=== PATIENT | female | born 1980 | race Caucasian/White ===

== ENCOUNTER → 2017-05-02 | Outpatient (CLI) | payer BC ==
[~2017-05-02] MED LIST: ACET-77 PO; AMLO10TA2 PO; DICL50TA4 PO; DOCU100C37 PO; HYDR-3812 PO; HYDR-3816 PO; HYDR-700 PO; IBUP-1773 PO; TRIA1TAB5
--- NOTE | 2017-05-02 15:22 | Diagnostic Imaging Report ---
Three views of the left knee. INDICATION: Fall. FINDINGS: There is no fracture, dislocation, or radiopaque foreign body. The articular surface appears intact. No suprapatellar effusion seen. IMPRESSION: Unremarkable exam. Dictated by: Dictated on workstation # [id number]
== END ==
LOC: RAD 11:11
PROVIDERS: ATTEND Internal Medicine
DX: S89.92XA Unspecified injury of left lower leg, initial encounter (principal); W19.XXXA Unspecified fall, initial encounter; Y99.8 Other external cause status
CPT/HCPCS: 73562

== ENCOUNTER → 2018-06-09 | Outpatient (CLI) | payer BC ==
[~2018-06-09] MED LIST changes: +ACHD5005 PO; +HYDR-34 PO; -HYDR-3812 PO; -HYDR-3816 PO
--- NOTE | 2018-06-09 17:02 | Diagnostic Imaging Report ---
INDICATION: Chronic left hip pain. AP and oblique views of the left hip are obtained. FINDINGS: No fracture or acute bony abnormality is seen. There is no overt lytic or blastic lesion. IMPRESSION: Negative left hip. Dictated by: Dictated on workstation # [id number]
== END ==
LOC: RAD 16:02
PROVIDERS: ATTEND Internal Medicine
DX: M25.552 Pain in left hip (principal)
CPT/HCPCS: 73502

== ENCOUNTER 2022-11-01 08:07 | Emergency (ER) | payer BC ==
[~2022-11-01] VITALS: Ht 175.3 cm; Wt 122.5 kg
[~2022-11-01 08:07] MED LIST changes: -ACET-77 PO; +ACET-78 PO; +AMLO-251 PO; -AMLO10TA2 PO
--- NOTE | 2022-11-01 08:17 | ED Dyspnea ---
General Stated Complaint: SOB History of Present Illness Date Seen by Provider: Nov 01, 2022 Time Seen by Provider: 08:17 Initial Comments 42-year-old female presents with generalized malaise, headache, chest tightness and shortness of breath. Patient reports they have had some respiratory illness for a while but this morning is a lot worse. She feels like she is having a difficulty taking a deep breath and that her chest feels tight. She denies any radiation or chest pain. She denies any chronic lung history or smoking. Allergies and Home Medications Allergies Coded Allergies: latex (Verified Allergy, Intermediate, RASH, 04/05/16) cefaclor (Verified Allergy, Unknown, 04/05/16) codeine (Verified Allergy, Unknown, PT STATES HAS HAD HYDROCODONE & HYDROMORPHONE W/O ISSUE, 04/05/16) Patient Home Medication List Home Medication List Reviewed: Yes Acetaminophen (Acetaminophen) 500 Mg Tablet, 1,000 MG PO Q6H PRN for MILD PAIN Prescribed by: JANET SCHMIDT on 04/17/16 1407 Ibuprofen (Ibuprofen) 600 Mg Tablet, 600 MG PO Q6H PRN for PAIN Prescribed by: JANET SCHMIDT on 04/17/16 1333 Review of Systems Review of Systems Constitutional: malaise EENTM: No ear pain, No throat pain Respiratory: cough, short of breath, other (Chest tightness) Cardiovascular: No chest pain, No palpitations, No syncope Gastrointestinal: No abdominal pain, No diarrhea, No vomiting Genitourinary: no symptoms reported Musculoskeletal: no symptoms reported Skin: no symptoms reported Psychiatric/Neurological: Headache Past Nfvlqtu-Qjgauu-Vwhpuk Hx Immunizations Up To Date Tetanus Booster (TDap): Unknown PED Vaccines UTD: No Past Medical History Appendectomy, Section, Gallbladder Reproductive Disorders: Yes (SEVERE TOXEMIA WITH ) Female Reproductive Disorders: Menstrual Problems, Endometriosis Sexually Transmitted Disease: No HIV/AIDS: No Loss of Vision: Bilateral Hearing Impairment: Denies Adverse Reaction/Blood Tranf: No (N/A) Family Medical History Patient reports no known family medical history. Physical Exam Vital Signs Vital Signs - First Documented 11/01/22 08:15 Pulse 87 Resp 22 B/P (MAP) 152/104 (120) Pulse Ox 98 O2 Delivery Room Air Capillary Refill : Height, Weight, BMI Height: 5'9.00" Weight: 290lbs. 0.0oz. 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 Skin: Normal Color, Warm/Dry Progress/Results/Core Measures Results/Orders Lab Results Laboratory Tests Test 11/01/22 08:29 11/01/22 08:39 11/01/22 08:48 11/01/22 11:03 Range/Units Influenza Type A (RT-PCR) Not Detected Not Detecte Influenza Type B (RT-PCR) Not Detected Not Detecte SARS-CoV-2 RNA (RT-PCR) Not Detected Not Detecte Urine Test NEGATIVE NEGATIVE White Blood Count 6.3 4.3-11.0 10^3/uL Red Blood Count 4.65 3.80-5.11 10^6/uL Hemoglobin 13.7 11.5-16.0 g/dL Hematocrit 41 35-52 % Mean Corpuscular Volume 87 80-99 fL Mean Corpuscular Hemoglobin 30 25-34 pg Mean Corpuscular Hemoglobin Concent 34 32-36 g/dL Red Cell Distribution Width 13.2 10.0-14.5 % Platelet Count 222 130-400 10^3/uL Mean Platelet Volume 10.6 9.0-12.2 fL Immature Granulocyte % (Auto) 1 % Neutrophils (%) (Auto) 66 42-75 % Lymphocytes (%) (Auto) 24 12-44 % Monocytes (%) (Auto) 5 0-12 % Eosinophils (%) (Auto) 4 0-10 % Basophils (%) (Auto) 1 0-10 % Neutrophils # (Auto) 4.2 1.8-7.8 10^3/uL Lymphocytes # (Auto) 1.5 1.0-4.0 10^3/uL Monocytes # (Auto) 0.3 0.0-1.0 10^3/uL Eosinophils # (Auto) 0.3 0.0-0.3 10^3/uL Basophils # (Auto) 0.0 0.0-0.1 10^3/uL Immature Granulocyte # (Auto) 0.0 0.0-0.1 10^3/uL D-Dimer < 0.27 0.00-0.49 UG/ML Sodium Level 140 135-145 MMOL/L Potassium Level 4.1 3.6-5.0 MMOL/L Chloride Level 105 98-107 MMOL/L Carbon Dioxide Level 25 21-32 MMOL/L Anion Gap 10 5-14 MMOL/L Blood Urea Nitrogen 12 7-18 MG/DL Creatinine 0.85 0.60-1.30 MG/DL Estimat Glomerular Filtration Rate 88 BUN/Creatinine Ratio 14 Glucose Level 100 70-105 MG/DL Calcium Level 9.1 8.5-10.1 MG/DL Corrected Calcium 9.3 8.5-10.1 MG/DL Magnesium Level 1.6 1.6-2.4 MG/DL Total Bilirubin 0.4 0.1-1.0 MG/DL Aspartate Amino Transf (AST/SGOT) 18 5-34 U/L Alanine Aminotransferase (ALT/SGPT) 18 0-55 U/L Alkaline Phosphatase 65 40-136 U/L Troponin I < 0.028 < 0.028 <0.028 NG/ML C-Reactive Protein High Sensitivity 1.01 H 0.00-0.50 MG/DL Total Protein 7.2 6.4-8.2 GM/DL Albumin 3.7 3.2-4.5 GM/DL Procalcitonin 0.04 <0.10 NG/ML My Orders Orders - MILLER,TAMMIE L DO Cbc With Automated Diff (11/01/22 08:20) Comprehensive Metabolic Panel (11/01/22 08:20) Hs C Reactive Protein (11/01/22 08:20) Fibrin Degradation Products (11/01/22 08:20) Hcg,Qualitative Urine (11/01/22 08:20) Magnesium (11/01/22 08:20) Procalcitonin (Pct) (11/01/22 08:20) Troponin I Bertie (11/01/22 08:20) Influenza A And B By Pcr (11/01/22 08:20) Covid 19 Inhouse Test (11/01/22 08:20) Chest Pa/Lat (2 View) (11/01/22 08:20) Ketorolac Injection (Toradol Injection) (11/01/22 08:25) Ed Iv/Invasive Line Start (11/01/22 08:30) Ekg Tracing (11/01/22 08:30) Monitor-Rhythm Ecg Trace Only (11/01/22 08:30) Albuterol/Ipra Inhalation Soln (Duoneb I (11/01/22 09:45) Svn Small Volume Nebulizer (11/01/22 09:31) Troponin I Bertie (11/01/22 10:30) Dexamethasone Injection (Decadron Inje (11/01/22 10:45) Medications Given in ED Current Medications Medications Dose Ordered Sig/Cailin Route Start Time Stop Time Status Last Admin Dose Admin Albuterol/ Ipratropium 3 ml ONCE ONCE INH 11/01/22 09:45 11/01/22 09:46 DC 11/01/22 10:26 3 ML Dexamethasone Sodium Phosphate 10 mg ONCE ONCE IV 11/01/22 10:45 11/01/22 10:46 DC 11/01/22 11:12 10 MG Vital Signs/I&O 11/01/22 11/01/22 08:15 10:26 Pulse 87 Resp 22 B/P (MAP) 152/104 (120) Pulse Ox 98 96 O2 Delivery Room Air Room Air Progress Progress Note : Progress Note Patient had significant improvement with breathing treatment. Patient has no known history of reactive airway disease or asthma. Has troponins that were negative x2, negative chest x-ray, negative EKG, negative D-dimer. Patient likely has some underlying reactive airway disease versus an acute bronchitis. I will prescribe her a albuterol inhaler. She received steroids in the ER and not likely the need further steroids. She does have an appointment with her primary care provider tomorrow for recheck of her symptoms. Patient should return to the ER as needed. Patient was stable and discharged Initial ECG Impression Date: Nov 01, 2022 Initial ECG Impression Time: 08:25 Initial ECG Rate: 67 Initial ECG Rhythm: Normal Sinus Initial ECG Intervals: Normal Initial ECG Impression: Normal Diagnostic Imaging Diagonstic Imaging: Xray Plain Films/CT/US/NM/MRI: chest Comments Date of Exam:11/01/22 CHEST PA/LAT (2 VIEW) INDICATION: Shortness of breath. PA and lateral chest obtained at 09:25 a.m. Heart and mediastinal silhouette are normal in appearance. The lungs are clear. There is no pneumothorax or pleural fluid. IMPRESSION: Negative chest. Reviewed: Reviewed by Me, Reviewed/Discussed Departure Impression Primary Impression: Bronchitis Disposition: 01 HOME, SELF-CARE Condition: Stable Departure-Patient Inst. Referrals: MEMO HARDY DO (PCP/Family) Primary Care Physician Patient Instructions: Bronchitis, Adult ED Add. Discharge Instructions: Return to the ER with any concerns. Please use the inhaler every 4 hours while awake for the next 24 hours. When obtaining your prescription from the pharmacy please asked them for a spacer. If they need a prescription they may call and we will give you 1 over the phone. Please keep your appointment with your primary care provider tomorrow. Scripts Albuterol Sulfate (VENTOLIN HFA) 1 Puff Puff 2 PUFF INH Q4H PRN for SHORTNESS OF BREATH, #1 EA 1 PUFF = 90 MCG Prov: TAMMIE MILLER DO 11/01/22 TAMMIE MILLER DO Nov 01, 2022 08:17
[2022-11-01] MEDS ORDERED: KETOROLAC 30 MG/ML VIAL IVP STA (08:25)
[2022-11-01 09:17] LABS: ALANINE AMINOTRANSFERASE 18 U/L (0-55); ALBUMIN 3.7 GM/DL (3.2-4.5); ALKALINE PHOSPHATASE 65 U/L (40-136); BILIRUBIN,TOTAL 0.4 MG/DL (0.1-1.0); BUN/CREATININE RATIO 14; CALCIUM 9.1 MG/DL (8.5-10.1); CARBON DIOXIDE 25 MMOL/L (21-32); CHLORIDE 105 MMOL/L (98-107); CREATININE SERUM 0.85 MG/DL (0.60-1.30); GFR ESTIMATED 88; GLUCOSE 100 MG/DL (70-105); MAGNESIUM 1.6 MG/DL (1.6-2.4); POTASSIUM 4.1 MMOL/L (3.6-5.0); SODIUM 140 MMOL/L (135-145); TOTAL PROTEIN 7.2 GM/DL (6.4-8.2)
--- NOTE | 2022-11-01 09:23 | Diagnostic Imaging Report ---
INDICATION: Shortness of breath. PA and lateral chest obtained at 09:25 a.m. Heart and mediastinal silhouette are normal in appearance. The lungs are clear. There is no pneumothorax or pleural fluid. IMPRESSION: Negative chest. Dictated by: Dictated on workstation # [id number]
[2022-11-01 09:25] LABS: BASOPHILS % (AUTO) 1 % (0-10); EOSINOPHILS # (AUTO) 0.3 10^3/uL (0.0-0.3); EOSINOPHILS % (AUTO) 4 % (0-10); HEMATOCRIT 41 % (35-52); HEMOGLOBIN 13.7 g/dL (11.5-16.0); LYMPHOCYTES # (AUTO) 1.5 10^3/uL (1.0-4.0); LYMPHOCYTES % (AUTO) 24 % (12-44); MEAN CORPUSCULAR HEMOGLOBIN 30 pg (25-34); MEAN CORPUSCULAR HGB CONC 34 g/dL (32-36); MEAN CORPUSCULAR VOLUME 87 fL (80-99); MEAN PLATELET VOLUME 10.6 fL (9.0-12.2); MONOCYTES # (AUTO) 0.3 10^3/uL (0.0-1.0); MONOCYTES % (AUTO) 5 % (0-12); NEUTROPHILS # (AUTO) 4.2 10^3/uL (1.8-7.8); NEUTROPHILS % (AUTO) 66 % (42-75); PLATELET COUNT 222 10^3/uL (130-400); WHITE BLOOD COUNT 6.3 10^3/uL (4.3-11.0)
[2022-11-01] MEDS ORDERED: RT-ALBUTEROL/IPRATROPIUM 3 ML (DUONEB) VIAL INH ONE (09:45)
[2022-11-01] MEDS ORDERED: RT-ALBUINH INH (11:49)
[2022-11-01 11:57] VITALS: BP 136/85
== END 2022-11-01 11:57 | disposition home or self-care (01) ==
LOC: EDUNIT# 08:07 → ER 08:09
DX: J40 Bronchitis, not specified as acute or chronic (principal); Z20.822 Contact with and (suspected) exposure to COVID-19
CPT/HCPCS: 36415; 71046; 80053; 83735; 84145; 84484; 84703; 85025; 85379; 86141; 87636; 93005; 93041; 94640

== ENCOUNTER 2023-03-19 12:55 | Emergency (ER) | payer BC ==
[~2023-03-19 12:55] MED LIST changes: +RT-ALBUINH INH
[2023-03-19 13:00] VITALS: BP 166/131
--- NOTE | 2023-03-19 13:10 | ED General ---
General Chief Complaint: Fever-Adult/Adol Stated Complaint: VOMITING | FEVER Nursing Triage Note: PT TO RM 9 BY WC WITH CC OF FEVER, VOMITING,NAUSEA AND WEAKNESS SINCE 0100. PT REPORTS FEVER OF 104. PT DENIES TAKING FEVER REDUCING MEDS. Source of Information: Patient, Family () History of Present Illness Date Seen by Provider: March 19, 2023 Time Seen by Provider: 13:02 Initial Comments 82-year-old female presents emergency department today for nausea and vomiting. Symptoms started this morning around 130 and are associated with fever to 104 when taken orally. She states she vomited upwards of 16 times. She has been taking Tylenol and ibuprofen. She has no abdominal pain. She has had a total abdominal hysterectomy and does not have menstrual cycles. 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 All other systems reviewed and negative except documented per HPI. Voice recognition software was used to help create this chart Allergies and Home Medications Allergies Coded Allergies: latex (Verified Allergy, Intermediate, RASH, 04/05/16) cefaclor (Verified Allergy, Unknown, 04/05/16) codeine (Verified Allergy, Unknown, PT STATES HAS HAD HYDROCODONE & HYDROMORPHONE W/O ISSUE, 04/05/16) Patient Home Medication List Home Medication List Reviewed: Yes Acetaminophen (Acetaminophen) 500 Mg Tablet, 1,000 MG PO Q6H PRN for MILD PAIN Prescribed by: JANET SCHMIDT on 04/17/16 1407 Albuterol Sulfate (Ventolin Hfa) 1 Puff Puff, 2 PUFF INH Q4H PRN for SHORTNESS OF BREATH Prescribed by: TAMMIE MILLER on 11/01/22 1149 Ibuprofen (Ibuprofen) 600 Mg Tablet, 600 MG PO Q6H PRN for PAIN Prescribed by: JANET SCHMIDT on 04/17/16 1333 Ondansetron (Ondansetron Odt) 8 Mg Tab.rapdis, 8 MG SL Q6H PRN for NAUSEA/VOMITING Prescribed by: JOSEPHINE MARQUEZ MD on 03/19/23 1353 Review of Systems Review of Systems Constitutional: see HPI Past Vvcvsuh-Eqiksp-Ukilri Hx Patient Social History Tobacco Use?: No Use of E-Cig and/or Vaping dev: No Substance use?: No Alcohol Use?: No Immunizations Up To Date Tetanus Booster (TDap): Unknown PED Vaccines UTD: No Past Medical History Appendectomy, Section, Gallbladder Reproductive Disorders: Yes (SEVERE TOXEMIA WITH ) Female Reproductive Disorders: Menstrual Problems, Endometriosis Sexually Transmitted Disease: No HIV/AIDS: No Loss of Vision: Bilateral Hearing Impairment: Denies Adverse Reaction/Blood Tranf: No (N/A) Family Medical History Patient reports no known family medical history. Physical Exam Vital Signs Vital Signs - First Documented 03/19/23 13:00 Temp 37.8 Pulse 126 Resp 20 B/P (MAP) 166/131 (143) Pulse Ox 97 O2 Delivery Room Air Capillary Refill : Less Than 3 Seconds Height, Weight, BMI Height: 5'9.00" Weight: 290lbs. 0.0oz. 131.943264lm; 39.00 BMI Method:Stated General Appearance: No Apparent Distress, WD/WN HEENT: Normal ENT Inspection, Pharynx Normal Neck: Full Range of Motion, Normal Inspection, Non Tender Respiratory: Chest Non Tender, Lungs Clear, Normal Breath Sounds, No Accessory Muscle Use, No Respiratory Distress Cardiovascular: No Murmur, Normal Peripheral Pulses, Tachycardia Gastrointestinal: Normal Bowel Sounds, No Organomegaly, No Pulsatile Mass, Non Tender, Soft Extremity: Normal Capillary Refill, Non Tender, No Calf Tenderness Neurologic/Psychiatric: Alert, Oriented x3, Normal Mood/Affect Skin: Normal Color, Warm/Dry Progress/Results/Core Measures Suspected Sepsis SIRS Temperature: Pulse: 126 Respiratory Rate: 20 Laboratory Tests 03/19/23 13:12: White Blood Count 12.0H Blood Pressure 166 /131 Mean: 143 Laboratory Tests 03/19/23 13:12: Creatinine 1.00, Platelet Count 225 Results/Orders Lab Results Laboratory Tests Test 03/19/23 13:12 Range/Units White Blood Count 12.0 H 4.3-11.0 10^3/uL Red Blood Count 5.13 H 3.80-5.11 10^6/uL Hemoglobin 15.2 11.5-16.0 g/dL Hematocrit 44 35-52 % Mean Corpuscular Volume 85 80-99 fL Mean Corpuscular Hemoglobin 30 25-34 pg Mean Corpuscular Hemoglobin Concent 35 32-36 g/dL Red Cell Distribution Width 13.2 10.0-14.5 % Platelet Count 225 130-400 10^3/uL Mean Platelet Volume 10.3 9.0-12.2 fL Immature Granulocyte % (Auto) 0 % Neutrophils (%) (Auto) 89 H 42-75 % Lymphocytes (%) (Auto) 7 L 12-44 % Monocytes (%) (Auto) 3 0-12 % Eosinophils (%) (Auto) 0 0-10 % Basophils (%) (Auto) 0 0-10 % Neutrophils # (Auto) 10.7 H 1.8-7.8 10^3/uL Lymphocytes # (Auto) 0.9 L 1.0-4.0 10^3/uL Monocytes # (Auto) 0.4 0.0-1.0 10^3/uL Eosinophils # (Auto) 0.0 0.0-0.3 10^3/uL Basophils # (Auto) 0.0 0.0-0.1 10^3/uL Immature Granulocyte # (Auto) 0.1 0.0-0.1 10^3/uL Neutrophils % (Manual) 85 % Lymphocytes % (Manual) 8 % Monocytes % (Manual) 5 % Eosinophils % (Manual) 0 % Basophils % (Manual) 0 % Band Neutrophils 2 % Blood Morphology Comment NORMAL Sodium Level 137 135-145 MMOL/L Potassium Level 4.2 3.6-5.0 MMOL/L Chloride Level 104 98-107 MMOL/L Carbon Dioxide Level 22 21-32 MMOL/L Anion Gap 11 5-14 MMOL/L Blood Urea Nitrogen 10 7-18 MG/DL Creatinine 1.00 0.60-1.30 MG/DL Estimat Glomerular Filtration Rate 73 BUN/Creatinine Ratio 10 Glucose Level 106 H 70-105 MG/DL Calcium Level 9.6 8.5-10.1 MG/DL My Orders Orders - JOSEPHINE MARQUEZ DO Basic Metabolic Panel (03/19/23 13:07) Cbc With Automated Diff (03/19/23 13:07) Ondansetron Injection (Zofran Injectio (03/19/23 13:15) Ns Iv 1000 Ml (Sodium Chloride 0.9%) (03/19/23 13:15) Manual Differential (03/19/23 13:12) Diphenhydramine Injection (Benadryl Inje (03/19/23 13:55) Medications Given in ED Vital Signs/I&O 03/19/23 13:00 Temp 37.8 Pulse 126 Resp 20 B/P (MAP) 166/131 (143) Pulse Ox 97 O2 Delivery Room Air Capillary Refill : Less Than 3 Seconds Blood Pressure Mean: 143 Departure Communication (Admissions) Patient is hemodynamically stable. She is given IV Zofran, IV Benadryl for nausea and vomiting. She had no recurrence of vomiting here in the emergency department. She is tolerating small sips of fluids prior to discharge. Her abdomen is soft, nontender and nonsurgical. [place] considerations include viral gastrointestinal disorder, electrolyte abnormality, COVID, dehydration. No indication for COVID testing as she does not have any high risk characteristics that would require treatment. Electrolytes unremarkable as is her renal function. Patient was given IV fluids and is feeling somewhat better. She is afebrile here, nontoxic in appearance. There is no evidence for an acute medical condition at this time family is likely viral in origin as we have been seeing the school around and she does work in the school. She is discharged supportive care, Zofran and recommendation to take Benadryl [id number]. Impression Primary Impression: Nausea and vomiting Qualified Codes: R11.2 - Nausea with vomiting, unspecified Disposition: HOME, SELF-CARE Condition: Stable Departure-Patient Inst. Referrals: MEMO HARDY DO (PCP/Family) Primary Care Physician Patient Instructions: Nausea and Vomiting, Adult ED Add. Discharge Instructions: Take the nausea medications as prescribed as needed. I think you likely have a GI bug which. Likely last 24 to 48 hours and gradually improve thereafter. Return to the urgency department for any severe concerns. Take small sips of fluids every 15 to 20 minutes to ensure that you stay properly hydrated. All discharge instructions reviewed with patient and/or family. Voiced understanding. Scripts Ondansetron (Ondansetron Odt) 8 Mg Tab.rapdis 8 MG SL Q6H PRN for NAUSEA/VOMITING for 5 Days, #20 TAB Prov: JOSEPHINE MARQUEZ DO 03/19/23 JOSEPHINE MARQUEZ DO March 19, 2023 13:10
[2023-03-19] MEDS ORDERED: NS IV 1000 ML 1,000 ML IV SCH (13:15)
[2023-03-19] MEDS ORDERED: ONDANSETRON 4 MG/2 ML (SDV) Z0FRAN IVP ONE (13:15)
[2023-03-19 13:19] LABS: BASOPHILS % (AUTO) 0 % (0-10); EOSINOPHILS % (AUTO) 0 % (0-10); HEMATOCRIT 44 % (35-52); HEMOGLOBIN 15.2 g/dL (11.5-16.0); LYMPHOCYTES # (AUTO) 0.9 10^3/uL (1.0-4.0); LYMPHOCYTES % (AUTO) 7 % (12-44); MEAN CORPUSCULAR HEMOGLOBIN 30 pg (25-34); MEAN CORPUSCULAR HGB CONC 35 g/dL (32-36); MEAN CORPUSCULAR VOLUME 85 fL (80-99); MEAN PLATELET VOLUME 10.3 fL (9.0-12.2); MONOCYTES # (AUTO) 0.4 10^3/uL (0.0-1.0); MONOCYTES % (AUTO) 3 % (0-12); NEUTROPHILS # (AUTO) 10.7 10^3/uL (1.8-7.8); NEUTROPHILS % (AUTO) 89 % (42-75); PLATELET COUNT 225 10^3/uL (130-400)
[2023-03-19 13:28] LABS: POTASSIUM 4.2 MMOL/L (3.6-5.0)
[2023-03-19 13:29] LABS: CALCIUM 9.6 MG/DL (8.5-10.1)
[2023-03-19 13:49] LABS: BAND NEUTROPHILS 2 %; BASOPHILS % (MANUAL) 0 %; EOSINOPHILS % (MANUAL) 0 %; LYMPHOCYTES % (MANUAL) 8 %; MONOCYTES % (MANUAL) 5 %; NEUTROPHILS % (MANUAL) 85 %; RBC MORPH NORMAL
[2023-03-19] MEDS ORDERED: ONDA8TAB13 SL (13:53)
[2023-03-19] MEDS ORDERED: diphenhydrAMINE 50 MG/ML INJ (BENADRYL) IVP STA (13:55)
== END 2023-03-19 14:43 | disposition home or self-care (01) ==
LOC: EDUNIT# 12:55 → ER 12:58
DX: R11.2 Nausea with vomiting, unspecified (principal); Z91.040 Latex allergy status; Z28.310 Unvaccinated for COVID-19
CPT/HCPCS: 36415; 80048; 85007; 85025; 85027